=== PATIENT | male | born 1935 | race Caucasian/White ===

== ENCOUNTER 2016-08-15 16:32 | Emergency (ER) | payer OTHER, MEDICAID ==
[~2016-08-15] VITALS: Ht 170.2 cm; Wt 90.7 kg
--- NOTE | 2016-08-15 16:41 | NUR ---
DR GERARD AT THE BEDSIDE FOR EVAL AND EXAM.
[2016-08-15] MEDS ORDERED: ATENOLOL (16:42)
[2016-08-15] MEDS ORDERED: PRADAXA (16:42)
[2016-08-15] MEDS ORDERED: VITAMIN D (16:42)
[2016-08-15] MEDS ORDERED: LISINOPRIL (16:42)
[2016-08-15] MEDS ORDERED: ACETAMINOPHEN ES 500 MG TABLET PO ONE (17:00)
[2016-08-15] MEDS ORDERED: IV NORMAL SALINE 1000 ML BAG IV ONE ×2 (17:00→17:45)
[2016-08-15] MEDS ORDERED: ACETAMINOPHEN ES 500 MG TABLET ONE (17:08)
[2016-08-15 17:18] LABS: BASOPHILS # (AUTO) 0.5 K/uL (0.0-8.0); BASOPHILS % (AUTO) 2.5 % (0.0-2.0); EOSINOPHILS # (AUTO) 0.3 K/uL (0.0-0.7); EOSINOPHILS % (AUTO) 1.4 % (0.0-7.0); HEMATOCRIT 35.7 % (40-50); HEMOGLOBIN 11.7 G/DL (14.0-18.0); LYMPHOCYTES # (AUTO) 0.6 K/uL (20.0-40.0); LYMPHOCYTES % (AUTO) 2.8 % (20.5-51.5); MEAN CORPUSCULAR HEMOGLOBIN 22.9 UUG (27.0-31.0); MEAN CORPUSCULAR HGB CONC 33 g/dL (32.0-37.0); MEAN CORPUSCULAR VOLUME 69.7 FL (82.0-92.0); MONOCYTES # (AUTO) 0.3 K/uL (2.0-10.0); MONOCYTES % (AUTO) 1.3 % (0.0-11.0); NEUTROPHILS # (AUTO) 18.3 K/uL (1.8-8.9); PLATELET COUNT (AUTO) 253 K/UL (150-450); RED BLOOD CELL COUNT(AUTO) 5.12 MIL/UL (4.7-6.1); RED CELL DISTRIBUTION WIDTH 17.3 % (11.5-14.5)
[2016-08-15 17:29] LABS: CALCIUM 9.1 mg/dL (8.5-10.1); POTASSIUM 4.3 mmol/L (3.5-5.1)
[2016-08-15 17:30] LABS: CREATININE 1.6 mg/dL (0.6-1.3)
[2016-08-15 17:33] LABS: TROPONIN I < 0.017 ng/mL (0.00-0.056)
[2016-08-15 17:34] LABS: ALBUMIN 3.2 g/dL (3.4-5.0); BILIRUBIN,DIRECT 0.1 mg/dL (0.0-0.2); BILIRUBIN,TOTAL 0.4 mg/dL (0.2-1.0); TOTAL PROTEIN, SERUM 6.8 g/dL (6.4-8.2)
[2016-08-15] MEDS ORDERED: CEFTRIAXONE 2 G in IV DEXTROSE 5% 100 ML IV ONE (17:45)
[2016-08-15 17:47] LABS: BAND % (MANUAL) 11 % (0-10); EOSINOPHILS % (MANUAL) 1 % (0-8); HYPOCHROMASIA 2+; LYMPHOCYTES % (MANUAL) 2 % (20-40); NEUTROPHILS % (MANUAL) 86 % (42-75)
[2016-08-15 17:48] LABS: ANISOCYTOSIS 1+
[2016-08-15 17:49] LABS: PLATELET ESTIMATE ADEQUATE
[2016-08-15 17:53] LABS: LACTIC ACID 1.8 mmol/L (0.4-2.0)
[2016-08-15] MEDS ORDERED: CEFTRIAXONE 1 G VIAL ONE (18:04)
[2016-08-15 18:08] LABS: *BILIRUBIN,URIN NEGATIVE (NEGATIVE); *BLOOD, URINE NEGATIVE (NEGATIVE); *CLARITY,URINE CLEAR (CLEAR); *COLOR,URINE YELLOW (YELLOW); *KETONES,URINE NEGATIVE (NEGATIVE); *PROTEIN,URINE 1+ (NEGATIVE); *UROBILINOGEN,URINE 0.2 E.U./dl (NORMAL); LEUKOCYTE ESTERASE ,URINE NEGATIVE (NEGATIVE); NITRITE, URINE NEGATIVE (NEGATIVE); PH,URINE 5.5 (5.0-8.0); UGLUCOSE NEGATIVE (NEGATIVE)
[2016-08-15 18:13] LABS: BACTERIA,URINE FEW /HPF (NONE SEEN); RBC,URINE 0-3 /HPF (0-3); SQUAMOUS EPITHELIAL CELL,UR FEW /HPF (NONE SEEN); WBC,URINE 0-3 /HPF (0-3)
--- NOTE | 2016-08-15 20:47 | NUR ---
Patient Tranfers to outside Facility Physician: Dr. Torres Location: [facility]
== END 2016-08-15 20:49 | disposition short-term general hospital (02) ==
LOC: ER 16:32
DX: R65.10 Systemic inflammatory response syndrome (SIRS) of non-infectious origin without acute organ dysfunction (principal); R55 Syncope and collapse; I10 Essential (primary) hypertension
CPT/HCPCS: 36415; 71010; 80048; 80076; 81001; 83605; 84484; 85025; 85730; 87040 ×2; 87086; 87400 ×2; 93005 ×2; 96360; 96365; 99285; A4663; J0696; J3490; J7030 ×2; 70030-TC